=== PATIENT | male | born 1990 | race Hispanic/Latino ===

== ENCOUNTER 2018-08-20 09:07 | Outpatient (CLI) | payer OTHER ==
--- NOTE | 2018-08-20 10:13 | ULT ---
GALLBLADDER ULTRASOUND: HISTORY: Right upper quadrant abdominal pain FINDINGS: The liver demonstrates increased echogenicity consistent with fatty infiltration without focal mass o r intrahepatic biliary ductal dilatation. Shadowing gallstones without gallbladder wall thickening or pericholecystic fluid are seen. The visualized portions of right kidney and visualized portions of the pancreas are normal. The infer ior pole of the right kidney and tail of the pancreas are obscured by bowel gas. The common duct [id number] in diameter. No free fluid is seen in the Dillard's pouch. IMPRESSION: 1. Fatty liver 2. Cholelithiasis
== END 2018-08-20 09:08 | disposition home or self-care (01) ==
LOC: BICULT 09:07
DX: R10.11 Right upper quadrant pain (principal); K80.20 Calculus of gallbladder without cholecystitis without obstruction; K76.0 Fatty (change of) liver, not elsewhere classified
CPT/HCPCS: 76705